=== PATIENT | male | born 1970 | race Caucasian/White ===

== ENCOUNTER 2017-03-08 12:47 | Emergency (ER) | payer OTHER ==
[~2017-03-08] VITALS: Ht 180.3 cm; Wt 104.8 kg
[~2017-03-08 12:47] MED LIST: AUGMENTIN 875-1 EACH PO; OXYCODONE HCL5 M2 PO
--- NOTE | 2017-03-08 13:52 | ED SKIN/ALLERGY COMPLAINT ---
History of Present Illness General Chief Complaint: Skin Rash/ Abcess Stated Complaint: POSION MAGY Source: patient Exam Limitations: no limitations Vital Signs & Intake/Output Vital Signs & Intake/Output Vital Signs Date Time Temp Pulse Resp B/P B/P Pulse O2 O2 Flow FiO2 Mean Ox Delivery Rate 03/08 1409 108 18 145/88 98 Room Air Room Air 03/08 1300 98.5 125 18 159/93 Allergies Coded Allergies: cortisone (DIZZY 09/27/16) Reconcile Medications Amoxicillin/Potassium Clav (Augmentin 875-125 Tablet) 875 MG-125 MG TABLET 1 TAB PO BID SINUSITIS Methylprednisolone. (Medrol) 4 MG TAB.DS.PK 1 DP PO AD rash 6 on day 1 then reduce by one tablet daily until gone Oxycodone HCl 5 MG CAPSULE 1 CAP PO 4XDP PAIN CONTROL (Reported) Triage Note: C/O RED, ITCHY RASH ON BOTH HANDS, ARMS, STOMACH A AND FACE X 3 DAYS, ? POSON MAGY. STATES HE WS WORKING OUTSIDE PRIOR TO RASH. Triage Nurses Notes Reviewed? yes Onset: Gradual Duration: day(s): (4) Timing: remote history Severity: moderate Severity Numbers: 7 Location: torso, extremities Possible Factors: exposure to plants No Modifying Factors: none HPI: Patient is a 46-year-old male presenting to the emergency department complaining of rash on the hands, torso going on for the past 4 days. Prior to onset of rash she was working outside in the yard. History of severe allergic reaction to poison magy. He's been using [id number] calamine lotion without relief. Denies any nausea vomiting fevers or chills. Rashes very pruritic. Has also been using apple cider vinegar to help dry up the rash. No shortness of breath. No palpitations. Denies any dizziness or lightheadedness. (BECK IZAGUIRRE,FABIÁN) Past History Travel History Traveled to [place] past 21 day No Medical History Any Pertinent Medical History? see below for history Neurological: NONE EENT: NONE Cardiovascular: NONE Respiratory: NONE Gastrointestinal: NONE Hepatic: NONE Renal: NONE Musculoskeletal: NONE Psychiatric: NONE Endocrine: NONE Surgical History Surgical History: ABSCESS I AND D Psychosocial History What is your primary language Chadian Tobacco Use: Current Not Daily Daily Tobacco Use Amount/Type: Cigar or Pipe use daily ETOH Use: denies use Family History Hx Contributory? No (FABIÁN LAMAS) Review of Systems Review of Systems Constitutional: Reports: no symptoms. Comments Review of systems: See HPI, All other systems negative. Constitutional, no chills fever or weight loss HEENT: No visual changes no sore throat no congestion Cardiovascular: No chest pain ,palpitation Skin, no jaundice Respiratory: No dyspnea cough sputum or hemoptysis GI: No nausea no vomiting Muscle skeletal: no back pain, no neck pain, Neurologic: No numbness no confusion Psych: No stress anxiety Immunology: No splenectomy or history of AIDS (FABIÁN LAMAS) Physical Exam Physical Exam General Appearance: well developed/nourished, no apparent distress, alert, awake , comfortable Comments: Well-developed well-nourished no apparent distress. HEENT: Atraumatic, extraocular motion intact Neck: Supple, no lymphadenopathy Back: Nontender Respiratory: No respiratory distress Extremities: No edema, full range of motion Skin: Diffuse erythematous vesicular rash noted on the dorsum of both hands is also left lower side of the abdomen. Nontender to palpation. Excoriations present. Small amount Calamine lotion noted to be over the rash. Neuro: Alert and oriented x3 Psych: Mood affect normal, normal memory normal judgment. (FABIÁN LAMAS) Progress Differential Diagnosis: irritant dermatitis, contact dermatitis, scabies, nonspecific rash, atopic dermatitis Plan of Care: Current Medications Sig/Forest Start time Last Medication Dose Stop Time Status Admin Methylprednisolone 125 MG ONCE ONE 03/08 1400 UNVr (Solu Medrol) 03/08 1401 Departure Departure Time of Disposition: 1357 Disposition: HOME OR SELF CARE Condition: Stable Clinical Impression Primary Impression: Contact dermatitis Qualifiers: Contact dermatitis type: unspecified Contact dermatitis trigger: unspecified trigger Qualified Code: L25.9 - Unspecified contact dermatitis, unspecified cause Referrals: SHARAN KHALIL,JOSÉ ANTONIO Kim (PCP/Family) Additional Instructions: Follow-up with your primary care physician call to make an appointment. Take prednisone as prescribed for the next couple days. Take a [id number] of Benadryl as directed to help with itch. Avoid scratching. Start steroid pack tomorrow as you were given Solu-Medrol here in the emergency department. Departure Forms: Customer Survey General Discharge Information Prescriptions: Current Visit Scripts Methylprednisolone. (Medrol) 1 DP PO AD #1 DP 6 on day 1 then reduce by one tablet daily until gone (FABIÁN LAMAS) PA/SPANISH TUTOR Co-Sign Statement Statement: ED Attending supervision documentation- [] I saw and evaluated the patient. I have also reviewed all the pertinent lab results and diagnostic results. I agree with the findings and the plan of care as documented in the PA's/SPANISH TUTOR's documentation. [X] I have reviewed the ED Record and agree with the PA's/SPANISH TUTOR's documentation. [] Additions or exceptions (if any) to the PAs/SPANISH TUTOR's note and plan are summarized below: [] (COCO BHARDWAJ DO)
[2017-03-08] MEDS ORDERED: MEDROL4 M2 PO (14:00)
[2017-03-08 14:09] VITALS: BP 145/88
== END 2017-03-08 14:15 ==
LOC: ERH 12:47
DX: L25.9 Unspecified contact dermatitis, unspecified cause (principal)
CPT/HCPCS: 96372; J2930

== ENCOUNTER 2018-01-22 11:04 | Inpatient (IN) | payer OTHER ==
[~2018-01-22] VITALS: Ht 177.8 cm; Wt 113.2 kg
[~2018-01-22 11:04] MED LIST changes: +MEDROL4 M2 PO
--- NOTE | 2018-01-22 11:32 | ED SKIN/ALLERGY COMPLAINT ---
History of Present Illness General Chief Complaint: General Adult Stated Complaint: REQUESTING ABSESS DRAINAGE Source: patient, old records Exam Limitations: no limitations Vital Signs & Intake/Output Vital Signs & Intake/Output Vital Signs Date Time Temp Pulse Resp B/P B/P Pulse O2 O2 Flow FiO2 Mean Ox Delivery Rate 01/22 1857 98.2 95 16 143/68 98 Room Air 01/22 1528 97.5 95 16 138/66 98 Room Air 01/22 1302 101.4 01/22 1137 96 Room Air 01/22 1135 101.4 120 18 134/80 96 Room Air Allergies Coded Allergies: ibuprofen (COLD CHILLS, SWEATS 01/22/18) Reconcile Medications Acetaminophen (Tylenol Extra Strength) 500 MG TABLET 1 TAB PO PRN PAIN ( Reported) Triage Note: PT TO ED FOR DRAINAGE OF ABSCESS TO R LATERAL SIDE, STATING HE HAS BEEN SEEN BY [facility] FOR SAME BEFORE, SAW HIM EARLIER THIS WEEK HAD A CT "BUT THEY COULDN'T DRAIN IT THEN SO THEY SENT ME IN". DENIES FEVER, WEAKNESS. Triage Nurses Notes Reviewed? yes HPI: 47M no PMH presenting with abscess on his right lower back. Had similar presentation a little over a year ago, had it drained by Dr. Aponte, had MRI a few days ago as outpatient that showed that the abscess had returned. Reports 10/10 pain surrounding the abscess, and denies fever, chills, nausea, vomiting. Presentation last time was similar, abscess was drained under ultrasound, per Dr. Aponte's note he believes this was appendicitis with extensive abscess, but appendectomy was never performed. Past History Travel History Traveled to [place] past 21 day No Medical History Any Pertinent Medical History? see below for history Neurological: NONE EENT: NONE Cardiovascular: NONE Respiratory: NONE Gastrointestinal: NONE Hepatic: NONE Renal: NONE Musculoskeletal: NONE Psychiatric: NONE Endocrine: NONE Blood Disorders: NONE Cancer(s): NONE Surgical History Surgical History: ABSCESS I AND D Psychosocial History What is your primary language Greek Tobacco Use: Never used ETOH Use: occasional use Illicit Drug Use: denies illicit drug use Family History Hx Contributory? No Review of Systems Review of Systems Constitutional: Reports: no symptoms. EENTM: Reports: no symptoms. Respiratory: Reports: no symptoms. Cardiovascular: Reports: no symptoms. GI: Reports: no symptoms. Genitourinary: Reports: no symptoms. Musculoskeletal: Reports: no symptoms. Skin: Reports: see HPI. Neurological/Psychological: Reports: no symptoms. Hematologic/Endocrine: Reports: no symptoms. Immunologic/Allergic: Reports: no symptoms. All Other Systems: Reviewed and Negative Physical Exam Physical Exam General Appearance: well developed/nourished, mild distress Head: atraumatic, normal appearance Eyes: Bilateral: normal appearance. Ears, Nose, Throat: normal ENT inspection, hearing grossly normal Neck: normal inspection, supple Respiratory: normal breath sounds, no respiratory distress Cardiovascular: regular rate/rhythm Gastrointestinal: soft, non-tender Back: normal inspection, normal range of motion Extremities: normal inspection, normal range of motion, no edema Neurologic/Psych: awake, alert, oriented x 3, normal mood/affect Skin: large abscess present on right lower back with erythema and tenderness, fluctuance extends in all directions particularly towards midline Lymphatic: no anterior cervical андрей Progress Differential Diagnosis: abscess/cellulitis, allergic reaction, anaphylaxis, angioedema, asthma, contact dermatitis, drug reaction, erythema multiforme, lyme disease, meningitis/sepsis, piyriasis rosea, RMSF, scarlet fever, shingles, syphilis/gonococcemia, toxic shock syndrome, urticaria Plan of Care: Orders Procedure Date/time Status BLOOD CULTURE 01/22 1149 Active PARTIAL THROMBOPLASTIN TIME 01/22 1135 Complete PROTHROMBIN TIME 01/22 1135 Complete COMPREHENSIVE METABOLIC PANEL 01/22 1135 Complete CBC WITHOUT DIFFERENTIAL 01/22 1135 Complete Laboratory Tests 01/22/18 1235: Anion Gap 16, Estimated GFR > 60, BUN/Creatinine Ratio 17.5, Glucose 107 H, Calcium 9.2, Total Bilirubin 0.8, AST 41, ALT 91 H, Alkaline Phosphatase 153 H , Total Protein 7.2, Albumin 3.5, Globulin 3.7, Albumin/Globulin Ratio 0.9 L, PT 14.5 H, INR 1.33 H, APTT 25, CBC w Diff MAN DIFF ORDERED, RBC 4.61 L, MCV 92.9, MCH 30.5, MCHC 32.8 L, RDW 15.1 H, MPV 8.3, Gran % 87.2 H, Lymphocytes % 10.7 L, Monocytes % 1.8, Eosinophils % 0.1, Basophils % 0.2, Absolute Granulocytes 22.7 H, Absolute Lymphocytes 2.8, Absolute Monocytes 0.5, Absolute Eosinophils 0, Absolute Basophils 0.1, Platelet Estimate INCREASED, Anisocytosis 1+ Microbiology 01/22 1250 BLOOD: Blood Culture - RECD 01/22 1235 BLOOD: Blood Culture - RECD Departure Departure Disposition: HOME OR SELF CARE Condition: Stable Clinical Impression Primary Impression: Sepsis Secondary Impressions: Back abscess, Psoas abscess, right Referrals: Elke KHALIL,Hari Kim (PCP/Family) Departure Forms: Customer Survey General Discharge Information OR/GI Note Spoke With: Jeramie KHALIL,Ruben Menendez ED Treatment Decision: ALICIA HOUSER requires urgent operative management or an emergent procedure that cannot be performed in the Emergency Room setting. Transport To: [facility] Sepsis Exam Date of Focused Sepsis Exam: 01/22/18 Time of Focused Sepsis Exam: 1235 Sepsis Cardiac Exam: Tachycardia Sepsis Resp Exam: CTA Sepsis Cap Refill Exam: <2 Sec Sepsis Peripheral Pulse Exam: Normal Sepsis Peripheral Pulse Location: Radial Sepsis Skin Color Exam: Normal for Ethnicity Skin Temp/Moisture Exam: Warm/Dry
[2018-01-22 13:01] LABS: PT 14.5 SEC (9.4-12.5); PTT 25 SEC (25-37)
[2018-01-22 13:06] LABS: ABSOLUTE BASOPHIL COUNT 0.1 /CUMM (0.0-0.2); ABSOLUTE EOSINOPHIL COUNT 0 /CUMM (0.0-0.7); ABSOLUTE GRANULOCYTE CT 22.7 /CUMM (1.4-6.5); ABSOLUTE LYMPH COUNT 2.8 /CUMM (1.2-3.4); ABSOLUTE MONOCYTE COUNT 0.5 /CUMM (0.10-0.60); BASOPHIL % 0.2 % (0.0-2.0); EOSINOPHIL % 0.1 % (0-5); HEMATOCRIT 42.8 % (42-52); MEAN CORPUSCULAR HGB 30.5 PG (27.0-31.0); MEAN CORPUSCULAR HGB CONC 32.8 G/DL (33.0-37.0); MEAN CORPUSCULAR VOLUME 92.9 FL (80.0-94.0); MEAN PLATELET VOLUME 8.3 FL (7.4-10.4); PLATELET COUNT 578 /CUMM (130-400); RBC DISTRIBUTION WIDTH 15.1 % (11.5-14.5); RED BLOOD CELL CT 4.61 /CUMM (4.70-6.10)
[2018-01-22 13:09] LABS: GRANULOCYTE % 87.2 % (42.2-75.2)
[2018-01-22] MEDS ORDERED: TYLENOL EXTRA500 M2 PO (14:36)
--- NOTE | 2018-01-22 16:33 | CT SCAN REPORT ---
EXAMINATION: CT ABDOMEN AND PELVIS WITH CONTRAST CLINICAL INFORMATION: Rule out appendicitis. Evaluate right back abscess. History of same. Presumed appendicitis last time with extensive abscess. COMPARISON: CT scan of the abdomen and pelvis dated 10/27/2016. TECHNIQUE: Multidetector CT volumetric acquisition of the abdomen and pelvis was performed after the administration of oral contrast and 90 mL of intravenous Optiray 320. The data set was reformatted in the sagittal and coronal planes and reviewed on an independent workstation. DLP: 1087.23 mGy-cm. FINDINGS: RETROPERITONEAL AND ABDOMINAL WALL: The previously demonstrated right psoas and iliopsoas abscess collection has significantly increased in size, extending from the level of the right mid kidney inferiorly into the pelvis over a length of approximately 26 cm, involving the right psoas muscle, the posterior right abdominal wall musculature, the right iliopsoas muscle and extending along the femoral vessels into the right groin. The largest cyst loculation of this collection measures 14.9 x 8.2 cm (series 2, image 52). There is also multiloculated extension of this large abscess across the posterior lateral right mid abdominal wall with 2 discrete loculations seen, one posteriorly and medially, measuring 8.6 x 12.5 x 7.3 cm and the other more laterally in the subcutaneous tissues of the right mid flank, measuring 10.0 x 6.5 x 8.6 cm in size. There is extensive subcutaneous edema seen surrounding this complex loculated abscess. LOWER CHEST: Bibasilar subsegmental atelectatic changes seen. LIVER, GALLBLADDER, BILIARY TREE: Liver normal size and attenuation. No focal cystic or solid mass or intrahepatic ductal dilatation. Common bile duct is dilated, measuring up to 1 cm in short axis. No obstructing stone or mass is seen. Hepatic and portal veins patent. Gallbladder partially distended and within normal limits. PANCREAS: Fatty infiltration of the pancreas is seen, most prominently involving the pancreatic head. The pancreas is otherwise unremarkable No ductal dilatation, mass, or surrounding stranding. SPLEEN: Normal size and appearance. 1.4 cm accessory splenule seen along the inferior margin of the spleen, unchanged. Splenic vein patent. ADRENAL GLANDS AND KIDNEYS: Adrenal glands normal. Kidneys bilaterally symmetric in size and function. No focal mass, hydronephrosis, nephrolithiasis or perinephric stranding. URETERS AND BLADDER: Ureters decompressed and within normal limits. Bladder partially distended and within normal limits. PELVIC ORGANS: Unremarkable. GASTROINTESTINAL TRACT: Small and large bowel loops decompressed. There is a slightly fluid distended thickened and indistinct tubular structure is seen at the base of the cecum (series 2, image 52 through 47), possibly representing an enlarged thickened and fluid distended appendix. Similar findings were noted previously. This is immediately subjacent to the large above described abscess collection and findings may be related to chronic reactive inflammation of the appendix. VASCULAR STRUCTURES: Abdominal aorta normal in caliber. No periaortic collections. Mild atherosclerotic calcifications of the aorta is seen. LYMPHATIC STRUCTURES: Several small subcentimeter sized right internal and external iliac chain lymph nodes is seen, similar to the prior exam. No abdominal or pelvic adenopathy. BONES: Moderate vertebral spondylosis in the lower thoracic spine. Mild degenerative disc disease at the lumbosacral junction. No focal lytic or destructive bone lesion. IMPRESSION: 1. Interval significant increase in size and extent of the right psoas, iliopsoas and abdominal wall complex collection is seen. Given the thickened carlton with enhancement and the surrounding subcutaneous edema, an infectious process such as a enlarging complex abscess collection is the most likely etiology. Differential would include bacterial and fungal and mycobacterial collections. Close clinical and lab correlation is requested. The abdominal wall components of this collection are easily accessible for aspiration. Mild associated reactive lymph nodes are seen. 2. Abnormal fluid distention of the appendix in the right lower quadrant is seen subjacent to the above-described abscess collection. Findings may represent chronic reactive inflammation of the appendix. I do not believe that the findings are due to primary appendicitis with secondary abscess, as the abscess collection is much larger than would be expected for a periappendiceal abscess and the epicenter of the abscess is also away from the appendix. 3. Extrahepatic biliary dilatation is again seen, unchanged. This is of uncertain etiology. No definite obstructing stone or mass is seen. This significant result was discussed with Dr. Wilmer Eastman 01/22/2018, 4:25 PM and it was ascertained that the content and urgency of this report was understood at the time of direct communication.
--- NOTE | 2018-01-22 17:27 | History & Physical Pre-Op ---
General Information and HPI History of Present Illness: Patien known to our office from visit with Dr. Aponte. He was seen Fall 2015 for complex flank abscess originating from retroperitoneum that was treated after it had drained spontaneously. It was felt that the abscess originated from appendix. Recommendations for interval appendectomy were made but patient declined. He now presents with 1-2 weeks of progressive back and flank pain and swelling. He was seen by PCP and outpatient CT arranged. It is unavailable. Allergies/Medications Allergies: Coded Allergies: ibuprofen (COLD CHILLS, SWEATS 01/22/18) Home Med list Acetaminophen (Tylenol Extra Strength) 500 MG TABLET 1 TAB PO PRN PAIN ( Reported) Past History Medical History Neurological: NONE EENT: NONE Cardiovascular: NONE Respiratory: NONE Gastrointestinal: NONE Hepatic: NONE Renal: NONE Musculoskeletal: NONE Psychiatric: NONE Endocrine: NONE Blood Disorders: NONE Cancer(s): NONE Surgical History Pertinent Surgical History: ABSCESS I AND D Past Family/Social History Psychosocial History Smoking Status: Former Smoker ETOH Use: occasional use Illicit Drug Use: denies illicit drug use Review of Systems Review of Systems: No cp, no pennington. No abdominal pain or n/v/d. remainder 12 points neg. Exam & Diagnostic Data Last 24 Hrs of Vital Signs/I&O Vital Signs Date Time Temp Pulse Resp B/P B/P Pulse O2 O2 Flow FiO2 Mean Ox Delivery Rate 01/22 1528 97.5 95 16 138/66 98 Room Air 01/22 1302 101.4 01/22 1137 96 Room Air 01/22 1135 101.4 120 18 134/80 96 Room Air Intake & Output 01/22 1600 01/22 0800 01/22 0000 Intake Total 1000 Output Total Balance 1000 Intake, IV 1000 Patient 246 lb Weight Weight Estimated Measurement Method Physical Exam: gen; overweight, nad. a/o x 3 Heent; anicteric, perrl, eomi chest; rrr, clear bilateral abd; soft, nt, nd. back: large area of induration and flucutance of right low back to flank. There is erythema. ext; no c/c/e Last 24 Hrs of Labs/Uriah: Laboratory Tests 01/22/18 1235: Anion Gap 16, Estimated GFR > 60, BUN/Creatinine Ratio 17.5, Glucose 107 H, Calcium 9.2, Total Bilirubin 0.8, AST 41, ALT 91 H, Alkaline Phosphatase 153 H , Total Protein 7.2, Albumin 3.5, Globulin 3.7, Albumin/Globulin Ratio 0.9 L, PT 14.5 H, INR 1.33 H, APTT 25, CBC w Diff MAN DIFF ORDERED, RBC 4.61 L, MCV 92.9, MCH 30.5, MCHC 32.8 L, RDW 15.1 H, MPV 8.3, Gran % 87.2 H, Lymphocytes % 10.7 L, Monocytes % 1.8, Eosinophils % 0.1, Basophils % 0.2, Absolute Granulocytes 22.7 H, Absolute Lymphocytes 2.8, Absolute Monocytes 0.5, Absolute Eosinophils 0, Absolute Basophils 0.1, Platelet Estimate INCREASED, Anisocytosis 1+ Microbiology 01/22 1250 BLOOD: Blood Culture - RECD 01/22 1235 BLOOD: Blood Culture - RECD Diagnostic Data Other Results CT images personally reviewed, oral/iv contrast. There is a large retroperitoneal abscess with extension to subcutaneous tisses of back/flank. Assessment/Plan Assessment/Plan: Recurrent massive retroperitoneal abscess with extension to soft tissues of right back and flank. Etiology indeterminant now but clearly a process similar to that in 2016. At that time after extensive careful consideration by Dr. Aponte and Radiology, it was felt that the source was a retroperitoneal perforated appendix. Patient declined interval appendectomy and now the process has recurred. It will require operative intervention/drainage. Given the complexity of the infection, more that one operation may be required. For now would favor avoidance of an abdominal approach. Plan retroperitoneal drainage. Broad specturm antibiotics. As Ranked By This Provider Problem List: 1. Retroperitoneal abscess
--- NOTE | 2018-01-22 17:46 | History & Physical Pre-Op ---
General Information and HPI MD Statement: I have seen and personally examined CORRINAALICIA Megan and documented this H& P. The patient is a 47 year old M who presented with a patient stated chief complaint of back pain. Source of Information: patient Exam Limitations: no limitations Allergies/Medications Allergies: Coded Allergies: ibuprofen (COLD CHILLS, SWEATS 01/22/18) Home Med list Acetaminophen (Tylenol Extra Strength) 500 MG TABLET 1 TAB PO PRN PAIN ( Reported) Past History Medical History Neurological: NONE EENT: NONE Cardiovascular: NONE Respiratory: NONE Gastrointestinal: NONE Hepatic: NONE Renal: NONE Musculoskeletal: NONE Psychiatric: NONE Endocrine: NONE Blood Disorders: NONE Cancer(s): NONE Surgical History Pertinent Surgical History: ABSCESS I AND D Past Family/Social History Psychosocial History Smoking Status: Former Smoker ETOH Use: occasional use Illicit Drug Use: denies illicit drug use Exam & Diagnostic Data Diagnostic Data Other Results CT images personally reviewed, oral/iv contrast. There is a large retroperitoneal abscess with extension to subcutaneous tisses of back/flank.
--- NOTE | 2018-01-22 22:27 | Operative Report ---
Operative/Inv Procedure Report Surgery Date: 01/22/18 Name of Procedure: Incision and drainage of right retroperitoneal abscess Pre-Operative Diagnosis: Retroperitoneal abscess Post-Operative Diagnosis: Same Estimated Blood Loss: less than 50ml Surgeon/Purchasing Supervisor: Jeramie KHALIL,Ruben Menendez/Jackie IZAGUIRRE Anesthesia: general endotracheal tube Drains: Hudson Microbiology: Purulence for culture Operative Indication: 47-year-old male with massive retroperitoneal abscess presents for operative drainage Operative/Procedure Note Note: After informed consent patient brought to the operating room and laid supine. Gen. anesthesia was obtained and his placed in left side down decubitus position on a beanbag. Axillary roll was placed. His right flank was then prepped and draped. The skin overlying the area of fluctuance was incised sharply and we were met with over 500 mL of thick foul-smelling purulence. Incision was lengthened and subcutaneous tissues tissues explored. We evacuated the abscess and saw that there was retroperitoneal muscular tissue with pus emanating from deep to it. Deeper retractors were placed and found a separate cavity and retroperitoneum with equal amounts of purulence. There are multiple tracts which were probed with the suction. There was diffuse oozing as a result of this. I elected not to explore him much further to do concerns of causing undue hemorrhage. We pulse lavaged the wound with normal saline. Hemostasis achieved with packing. Within remove the packs and found that hemostasis was adequate. There is trace purulence but really no more heavy drainage as was seen before. Looking at the CT and what we found intraoperatively, I felt confident that the majority of the retroperitoneal process was drained as we were and a plane deep to the sacral wing. I therefore elected to conclude the operation. I placed a 1 inch Hudson drain into the deep muscular cavity. It was sutured to the superficial muscle with a single 3-0 Vicryl to keep it in place. It was sutured to the skin with 3-0 nylon. The skin wound was loosely reapproximated partially with interrupted nylon sutures. Sterile dressing was applied. Findings: Large retroperitoneal abscess. CC: Elke KHALIL,Hair Kim
[2018-01-22 23:31] VITALS: BP 132/70
--- NOTE | 2018-01-23 01:04 | PN- General Surgery ---
Subjective Subjective: Postoperative check Patient has no major complaints at this time. His pain is well-controlled and he reports significant improvement in symptoms versus preop. No nausea or vomiting. He is tolerating sips of clears. Objective Vital Signs and I&Os Vital Signs Date Time Temp Pulse Resp B/P B/P Pulse O2 O2 Flow FiO2 Mean Ox Delivery Rate 01/22 2331 98.6 88 18 132/70 95 Room Air 01/22 1857 98.2 95 16 143/68 98 Room Air 01/22 1528 97.5 95 16 138/66 98 Room Air 01/22 1302 101.4 01/22 1137 96 Room Air 01/22 1135 101.4 120 18 134/80 96 Room Air Intake & Output 01/23 0800 01/23 0000 01/22 1600 01/22 0800 01/22 0000 01/21 1600 Intake Total 1000 Output Total Balance 1000 Intake, IV 1000 Patient 248 lb 246 lb Weight Weight Bed scale Estimated Measurement Method Physical Exam: Gen.: Patient is awake and alert. No acute distress. Cardiac: Regular Pulmonary: Lungs are clear. Abdomen: The right flank dressing contains a moderate to large amount of bloody drainage, which is being reinforced with a small towel. The dressing was left in place. Assessment/Plan Assessment/Plan Patient is a 47-year-old male with no significant known medical problems, who is now postoperative day #0 status post incision and drainage of large right flank abscess, which extended deep into the muscle. Over 1 L of pus was drained from the surgical site and a Wikie[place] drain was left in place. Plan: -Continue IV antibiotics with Unasyn every 6 hours. Follow-up OR cultures. Monitor temps and WBCs. -Okay to advance diet as tolerated. Hep-Lock IV fluids when tolerating by mouth. -Pain control with Percocet or Tylenol as needed. -Subcutaneous heparin and Alps for DVT prophylaxis. -Reinforce dressing as needed. Drainage is expected given the presence of a [place]ie[place] drain directly under gauze dressings. -? ID consult. Will discuss with Dr. Bobo. Core Measures Venous Thromboembolism VTE Risk Factors Surgery No Mechanical VTE Prophylaxis d/t N/A MechProphylax Ordered No VTE Pharm Prophylaxis d/t NA PharmProphylax ordered
[2018-01-23 01:26] VITALS: BP 126/68
[2018-01-23 03:30] VITALS: BP 122/70
[2018-01-23 05:18] VITALS: BP 117/73
[2018-01-23 08:57] LABS: ABSOLUTE BASOPHIL COUNT 0.1 /CUMM (0.0-0.2); ABSOLUTE EOSINOPHIL COUNT 0.1 /CUMM (0.0-0.7); ABSOLUTE GRANULOCYTE CT 13.3 /CUMM (1.4-6.5); ABSOLUTE LYMPH COUNT 2.1 /CUMM (1.2-3.4); ABSOLUTE MONOCYTE COUNT 0.5 /CUMM (0.10-0.60); BASOPHIL % 0.4 % (0.0-2.0); EOSINOPHIL % 0.7 % (0-5); MEAN CORPUSCULAR HGB 30.3 PG (27.0-31.0); MEAN CORPUSCULAR HGB CONC 32.2 G/DL (33.0-37.0); MEAN PLATELET VOLUME 8.3 FL (7.4-10.4); PLATELET COUNT 457 /CUMM (130-400); RBC DISTRIBUTION WIDTH 14.9 % (11.5-14.5)
[2018-01-23 09:13] LABS: HEMATOCRIT 33.9 % (42-52)
[2018-01-23 09:56] VITALS: BP 137/72
--- NOTE | 2018-01-23 10:48 | PN- General Surgery ---
See Addendum Subjective Subjective: feeling great, denies pain. ambulating around room. rima reg diet. +voids. no fevers/chills. no cp/sob/n/v. dressing reinforced overnight by RN due to saturation Objective Vital Signs and I&Os Vital Signs Date Time Temp Pulse Resp B/P B/P Pulse O2 O2 Flow FiO2 Mean Ox Delivery Rate 01/23 0956 98.3 95 18 137/72 96 01/23 0518 98.0 82 16 117/73 98 Room Air 01/23 0330 98.0 80 16 122/70 98 Room Air 01/23 0126 98.5 60 18 126/68 96 Room Air 01/22 2331 98.6 88 18 132/70 95 Room Air 01/22 1857 98.2 95 16 143/68 98 Room Air 01/22 1528 97.5 95 16 138/66 98 Room Air 01/22 1302 101.4 01/22 1137 96 Room Air 01/22 1135 101.4 120 18 134/80 96 Room Air Intake & Output 01/23 1600 01/23 0800 01/23 0000 01/22 1600 01/22 0800 01/22 0000 Intake Total 1480 1000 Output Total 450 Balance 1030 1000 Intake, IV 1000 1000 Intake, Oral 480 Output, Urine 450 Patient 250 lb 248 lb 246 lb Weight Weight Bed scale Bed scale Estimated Measurement Method Physical Exam: GEN- NAD CARD- S1S2 RRR PULM- CTAB ABD- soft obese nt. R flank dressing saturated with malodorus brown sanguinopurulent drainage. dressing taken down, drainage oozing from incision. area milked, flushed with NS, drainage slowed. no active bleeding. mariama drain sutured in place. surrounding skin irritated though intact, skin cleansed and wound redressed. EXT- calves soft nt bl Current Medications: Current Medications Sig/Forest Start time Last Medication Dose Route Stop Time Status Admin Acetaminophen 650 MG Q6P PRN 01/22 2330 DC PO Acetaminophen 0 .STK-MED ONE 01/22 1305 DC IV Acetaminophen 1,000 MG ONCE ONE 01/22 1300 DC 01/22 N/A 1 UNIT IV 01/22 1314 1302 Ampicillin Sodium/ 3,000 MG Q6H 01/23 0300 AC 01/23 Sulbactam Sodium IV 0944 Sodium Chloride 100 ML Ampicillin Sodium/ 0 .STK-MED ONE 01/22 1306 DC Sulbactam Sodium .ROUTE Ampicillin Sodium/ 3,000 MG ONCE ONE 01/22 1245 DC 01/22 Sulbactam Sodium IV 01/22 1314 1550 Sodium Chloride 100 ML Dextrose/Water 1,000 ML .Q8H 01/22 2330 DC 01/23 IV 0944 Docusate Sodium 100 MG BID 01/23 1000 AC PO Heparin Sodium 5,000 UNIT Q8 01/23 0600 AC 01/23 (Porcine) SC 0534 Morphine Sulfate 2 MG Q3P PRN 01/23 1015 AC IV Morphine Sulfate 4 MG Q3P PRN 01/22 2330 DC IV Ondansetron HCl 4 MG Q6P PRN 01/22 2330 DC IV Oxycodone/ 1 TAB Q4P PRN 01/22 2330 AC Acetaminophen PO Oxycodone/ 2 TAB Q4P PRN 01/22 2330 AC Acetaminophen PO Sodium Chloride 1,000 ML BOLUS ONE 01/22 1245 DC 01/22 IV 01/22 1444 1257 Sodium Chloride 1,000 ML BOLUS ONE 01/22 1245 DC 01/22 IV 01/22 1444 1503 Results Last 48 Hours of Labs: Laboratory Tests 01/23 01/22 0700 1235 Chemistry Sodium (137 - 145 mmol/L) 136 L 138 Potassium (3.5 - 5.1 mmol/L) 4.0 4.3 Chloride (98 - 107 mmol/L) 102 98 Carbon Dioxide (22 - 30 mmol/L) 25 24 Anion Gap (5 - 16) 9 16 BUN (9 - 20 mg/dL) 10 14 Creatinine (0.7 - 1.2 mg/dL) 0.7 0.8 Estimated GFR (>60 ml/min) > 60 > 60 BUN/Creatinine Ratio (7 - 25 %) 14.3 17.5 Glucose (65 - 99 mg/dL) 96 107 H Calcium (8.4 - 10.2 mg/dL) 9.2 Total Bilirubin (0.2 - 1.3 mg/dL) 0.8 AST (17 - 59 U/L) 41 ALT (21 - 72 U/L) 91 H Alkaline Phosphatase (< 127 U/L) 153 H Total Protein (6.3 - 8.2 g/dL) 7.2 Albumin (3.5 - 5.0 g/dL) 3.5 Globulin (1.9 - 4.2 gm/dL) 3.7 Albumin/Globulin Ratio (1.1 - 2.2 %) 0.9 L Coagulation PT (9.4 - 12.5 SEC) 14.5 H INR (0.90 - 1.17) 1.33 H APTT (25 - 37 SEC) 25 Hematology CBC w Diff MAN DIFF ORDERED MAN DIFF ORDERED WBC (4.8 - 10.8 /CUMM) 16.0 H 26.0 H RBC (4.70 - 6.10 /CUMM) 3.60 L 4.61 L Hgb (14.0 - 18.0 G/DL) 10.9 L 14.0 Hct (42 - 52 %) 33.9 L 42.8 MCV (80.0 - 94.0 FL) 94.0 92.9 MCH (27.0 - 31.0 PG) 30.3 30.5 MCHC (33.0 - 37.0 G/DL) 32.2 L 32.8 L RDW (11.5 - 14.5 %) 14.9 H 15.1 H Plt Count (130 - 400 /CUMM) 457 H 578 H MPV (7.4 - 10.4 FL) 8.3 8.3 Gran % (42.2 - 75.2 %) 83.0 H 87.2 H Lymphocytes % (20.5 - 51.1 %) 13.0 L 10.7 L Monocytes % (1.7 - 9.3 %) 2.9 1.8 Eosinophils % (0 - 5 %) 0.7 0.1 Basophils % (0.0 - 2.0 %) 0.4 0.2 Absolute Granulocytes (1.4 - 6.5 /CUMM) 13.3 H 22.7 H Segmented Neutrophils (42.2 - 75.2 %) 73 Band Neutrophils (0.0 - 5.0 %) 10 H Absolute Lymphocytes (1.2 - 3.4 /CUMM) 2.1 2.8 Lymphocytes (20.5 - 51.1 %) 13 L Monocytes (1.7 - 9.3 %) 3 Absolute Monocytes (0.10 - 0.60 /CUMM) 0.5 0.5 Eosinophils (0 - 5.0 %) 1 Absolute Eosinophils (0.0 - 0.7 /CUMM) 0.1 0 Absolute Basophils (0.0 - 0.2 /CUMM) 0.1 0.1 Platelet Estimate (ADEQUATE) VERIFIED BY SMEAR INCREASED Anisocytosis 1+ 1+ MICROBIO- blood cx: pending OR gs: WBC, GPC, GNR OR Cx: moderate GNR, prelim Assessment/Plan Assessment/Plan A- POD1 sp operative I&D of large retroperitoneal abscess, with mariama drain in place and continued drainage of collection, on unasyn with improving leukocytosis, with prelim OR cultures growing GNR, clinically improved. P- cont abx. fu final cultures/sens. prn pain meds mariama sutured in, keep in place frequent dressing changes to prevent maceration of skin (qshift/prn by rn) diet as tolerated trend cbc will dw attending Core Measures Venous Thromboembolism VTE Risk Factors Surgery No Mechanical VTE Prophylaxis d/t N/A MechProphylax Ordered No VTE Pharm Prophylaxis d/t NA PharmProphylax ordered
[2018-01-23] MEDS ORDERED: AUGMENTIN 875-1 EACH PO (13:10)
--- NOTE | 2018-01-23 13:14 | Patient Discharge Instructions ---
Discharge Instructions General Discharge Information You were seen/treated for: retroperitoneal abscess You had these procedures: Incision and drainage of retroperitoneal abscess Watch for these problems: fever>101, worsening pain, worsening redness around incision. Other wound care: Keep drain in place- sutured in. Expect large amount of drainage. Do not pack inside of wound. Clean dry dressing change 2x per day or more freqently as needed. You may shower. Special Instructions: Take antibiotics as needed. Call Dr. Bobo's office to be seen early this week Diet Continue normal diet: Yes Activity Activity Self Limited: Yes Acute Coronary Syndrome Inclusion Criteria At DC or during hospital stay patient has or had the following: ACS DIAGNOSIS No Discharge Core Measures Meds if any: Prescribed or Continued at Discharge Meds if any: NOT Prescribed or Continued at Discharge Congestive Heart Failure Inclusion Criteria At DC or during hospital stay patient has or had the following: CHF DIAGNOSIS No Discharge Core Measures Meds if any: Prescribed or Continued at Discharge Meds if any: NOT Prescribed or Continued at Discharge Cerebrovascular accident Inclusion Criteria At DC or during hospital stay patient has or had the following: CVA/TIA Diagnosis No Discharge Core Measures Meds if any: Prescribed or Continued at Discharge Meds if any: NOT Prescribed or Continued at Discharge Venous thromboembolism Inclusion Criteria VTE Diagnosis No VTE Type NONE VTE Confirmed by (Test) NONE Discharge Core Measures - Per Current guidelines, there needs to be overlap - treatment for the first 5 days of Warfarin therapy. - If discharged on Warfarin prior to 5 days of - overlap therapy, the patient will need to be - assessed for post discharge needs including - *Post discharge parental anticoagulation - *Warfarin and/or parental anticoagulation education - *Follow up date to check INR post discharge At least 5 days overlap therapy as Inpatient No Meds if any: Prescribed or Continued at Discharge Note: Overlap Therapy is Warfarin and Anticoagulant Meds if any: NOT Prescribed or Continued at Discharge
[2018-01-23 14:00] VITALS: BP 135/75
--- NOTE | 2018-01-23 15:49 | Surg Short-stay <48hrs Dis Sum ---
Visit Information Visit Dates Admission Date: 01/22/18 Discharge Date: 01/23/18 Surgical Short Stay DC Summary Admission Diagnosis: Retroperitoneal abscess Final Diagnosis: same Procedure(s): Incision and drainage retroperitoneal abscess Summary/Significant Findings: none Condition at Discharge: good Discharge Disposition: home or self care Discharge instructions provided to patient/family: Yes Post discharge follow-up plan: Follow up in office two days to arrange outpatient CT. Copies to: Elke KHALIL,Hari Kim
== END 2018-01-23 14:21 | DRG 358 ==
LOC: ERH 11:04 → 2NA 20:47 → PACUH 20:56 → ENRESERV 21:55 → PACUH 22:42 → ENTRNSPT 22:54 → 2NA 23:07 → CMPTRNSPT 23:19 → 2NA 01-23 11:01
PROVIDERS: Internal Medicine; Physician Assistant Surgical
PROC: 0W9H0ZZ Drainage of Retroperitoneum, Open Approach (ICD-10-PCS; principal; 2018-01-22)
DX: K68.19 Other retroperitoneal abscess (principal); D72.829 Elevated white blood cell count, unspecified; E66.3 Overweight; Z68.35 Body mass index [BMI] 35.0-35.9, adult; F17.290 Nicotine dependence, other tobacco product, uncomplicated; Z88.8 Allergy status to other drugs, medicaments and biological substances
CPT/HCPCS: 2NAP; 87070; 87075; 36592; 74177; 82436; 87040; J0131; J1644; J7060

== ENCOUNTER → 2018-06-15 | Day surgery (SDC) | payer OTHER ==
--- NOTE | 2018-06-14 10:51 | History & Physical Pre-Op ---
General Information and HPI History of Present Illness: Patient returns for scheduling appendectomy. History is that of recurrent retroperitoneal abscess drained via flank incision 6 weeks ago. suspicion is that of appendiceal origin of infection by imaging characteristics. Patient feels well now. Last CT showed concern of slightly more gas in retroperitoneal region but he states at the time there was swelling after return to work that has since resolved. He has no pain, f/c/s. Allergies/Medications Allergies: Coded Allergies: ibuprofen (COLD CHILLS, SWEATS 06/13/18) Home Med list Acetaminophen (Tylenol Extra Strength) 500 MG TABLET 1 TAB PO PRN PAIN ( Reported) Amoxicillin/Potassium Clav (Augmentin 875-125 Tablet) 875 MG-125 MG TABLET 1 TAB PO BID abscess Past History Medical History Neurological: NONE EENT: NONE Cardiovascular: NONE Respiratory: NONE Gastrointestinal: NONE Hepatic: NONE Renal: NONE Musculoskeletal: NONE Psychiatric: NONE Endocrine: NONE Blood Disorders: NONE Cancer(s): NONE History of MRSA: No History of VRE: No History of CDIFF: No Surgical History Pertinent Surgical History: Retroperitoneal ABSCESS I AND D x 2 Past Family/Social History Psychosocial History Services at Home None Smoking Status: Never Smoked ETOH Use: denies use Review of Systems Review of Systems: Patient reports no fatigue, no fever, no night sweats, no significant weight gain, no significant weight loss, and no exercise intolerance. He reports no abnormal moles, no jaundice, no hives, no eczema, and no rashes. He reports no dry eyes, no irritation, no vision change, and no discharge. He reports no cough , no wheezing, no shortness of breath, and no coughing up blood. He reports no chest pain, no arm pain on exertion, no shortness of breath when walking, no shortness of breath when lying down, no palpitations, and no known heart murmur. He reports normal appetite, no abdominal pain, no vomiting, no vomiting blood, no bloating, no diarrhea, no belching, no constipation, no regurgitation, and no rectal bleeding. He reports no incontinence, no difficulty urinating, no hematuria, and no increased frequency. He reports no muscle aches, no muscle weakness, no arthralgias/joint pain, and no back pain. Exam & Diagnostic Data Physical Exam: Patient is a 47-year-old male. Constitutional: General Appearance: healthy-appearing, well-nourished, and well- developed. Level of Distress: no acute distress. Ambulation: ambulating normally. Head: Head: normocephalic and atraumatic. Cardiovascular: Heart Auscultation: normal S1 and S2; no murmurs, rubs, or gallops; and regular rate and rhythm. Lungs: Respiratory effort: no dyspnea. Percussion: no dullness, flatness, or hyperresonance. Auscultation: no wheezing, rales/crackles, or rhonchi and breath sounds normal, good air movement, and clear to auscultation. Back: Thoracolumbar Appearance: normal curvature; healed flank scar.. Abdomen: Inspection and Palpation: no tenderness, guarding, masses, rebound tenderness, or CVA tenderness and soft and non-distended. Bowel Sounds: normal. Liver: non-tender and no hepatomegaly. Spleen: non-tender and no splenomegaly. Hernia: none palpable. Skin: Inspection and palpation: no rash, lesions, ulcer, induration, nodules, jaundice, or abnormal nevi and good turgor. Musculoskeletal:: Extremities: no cyanosis, edema, varicosities, or palpable cord. Motor Strength and Tone: normal tone and motor strength. Joints, Bones, and Muscles: no contractures, malalignment, tenderness, or bony abnormalities and normal movement of all extremities. Assessment/Plan Assessment/Plan: 1. Retroperitoneal abscess - healed. By imaging characteristics it is likely appendiceal in origin. Recommend interval appendectomy. It can be performed robotically such that retroperitoneal exploration can be performed. K68.19: Other retroperitoneal abscess 2. Acute appendicitis K35.80: Unspecified acute appendicitis Discussion Notes discussed risk of surgery including but not limited to bleeding and infection. As Ranked By This Provider Problem List: 1. Acute appendicitis 2. Retroperitoneal abscess
[~2018-06-15] VITALS: Ht 180.3 cm; Wt 113.4 kg
[~2018-06-15] MED LIST changes: +PERCOCET 5-3251 EACH PO; +TYLENOL EXTRA500 M2 PO
--- NOTE | 2018-06-15 10:46 | Operative Report ---
Operative/Inv Procedure Report Surgery Date: 06/15/18 Name of Procedure: Robotic-assisted laparoscopic interval appendectomy Pre-Operative Diagnosis: Retroperitoneal abscess Appendicitis Post-Operative Diagnosis: Same same Estimated Blood Loss: less than 50ml Surgeon/Datacap Developer: Jeramie KHALIL,Ruben Menendez/Dominique IZAGUIRRE Anesthesia: general endotracheal tube Specimens: Appendix Operative Indication: 47-year-old male with twice recurrent large retroperitoneal abscess, last drained via flank incision. Follow-up CT scan shows findings concerning for persistent retroperitoneal process near the tip of his appendix. Operative/Procedure Note Note: After consent is brought to the operating room laid supine. Gen. anesthesia obtained his abdomen was prepped and draped. Skin and left upper quadrant was infiltrated local anesthesia an incision made sharply. An 8 mm optical trocar was used Palmers point to gain access the peritoneum. Pneumoperitoneum was achieved. 2, 8 mm ports were placed in the left mid abdomen after local anesthesia instilled under direct vision the camera. The left upper quadrant port was then upsized to a 12 mm port. The robot was docked and targeted. Instruments were placed. I then broke scrub and went to the console. Patient is placed in Trendelenburg and rotated towards the left. The appendix was identified. The base at the cecum. The appendix was adhesed laterally. These were taken down with cautery. There is evidence of chronic inflammation. The cecum was taken down laterally along the white line of Toldt with cautery. We encountered a retroperitoneal appendix that, pierced the peritoneum laterally. I dissected it circumferentially with cautery and mobilized into the field. The tip of the appendix was obliterated with open ended appendix seen. There is no purulence however there was a chronic abscess cavity with inflammatory granulation tissue. The area was opened up more with cautery to allow suction irrigation. Window in the mesentery was then developed with a scissor cautery. The mesentery was divided with a BRANDI stapler. The base was divided with a stapler. Appendix placed in Endo Catch bag and extracted. Right lower quadrant was reexplored and irrigated. Hemostasis was adequate. There is no retained purulence. The ports were then removed moved and gas allowed to escape. Left upper quadrant port site was closed with 0 Vicryl suture. Skin incisions closed with 4-0 Vicryl. Steri-Strips and sterile dressing applied. Sponge and needle counts are correct. Findings: Chronic retroperitoneal abscess with appendicitis CC: Elke KHALIL,Hari iKm
== END ==
LOC: STS 01:37
DX: K38.2 Diverticulum of appendix (principal); Z87.891 Personal history of nicotine dependence
CPT/HCPCS: 44970; 64488; S2900; J0131; J1100; J2250; J2405; J3490